=== PATIENT | female | born 1955 | race Caucasian/White ===

== ENCOUNTER → 2021-07-11 | Outpatient (CLI) | payer SELFPAY ==
--- NOTE | 2021-07-11 | CYST_PTH ---
PATIENT: MARIAN NELSON LOC: [facility] U#:[id number] AGE/SX: 66/F ROOM: RE07/11/[address]: Dr. Mark Wade MD : [id number] BED: DIS: 07/11/2021 SPEC #: [id number] RECD: 07/11/21 18:17 STATUS: NICOLE GALINDO #: [id number] JEAN-PAUL: 07/11/21 00:[address]: Mark Wade DEPT: SURGICAL PATHOLOGY RECD BY: Keaton Segura Tissues: CYST Procedures: Surgery Specimen Level IV HEADER OPERATION: Nabothian cyst PRE-OP DIAGNOSIS: Nabothian cyst TISSUE SUBMITTED: Nabothian cyst MICROSCOPIC DIAGNOSIS Nabothian cyst, biopsy: Consistent with inflamed benign cyst. COLT:griselda 07/13/2021 MICROSCOPIC DESCRIPTION Slides are reviewed. GROSS DESCRIPTION Received in fixative is one container labeled with the patient's name and designated nabothian cyst. The specimen consists of multiple irregular fragments of hernandez soft tissue mixed with mucoid tissue that in aggregate measure 1 x 0.5 x 0.1 cm. The specimen is totally submitted in one cassette. / SJ:griselda 07/12/2021 TC:5 [facility]: [id number]
== END | disposition home or self-care (01) ==
PROVIDERS: Visit Provider Obstetrics & Gynecology
DX: N88.8 Other specified noninflammatory disorders of cervix uteri (principal)
CPT/HCPCS: 88304; 88305